=== PATIENT | female | born 2000 | race Caucasian/White ===

== ENCOUNTER 2024-04-18 01:22 | Day surgery (SDC) | payer OTHER, SELFPAY ==
[2024-04-11 12:14] VITALS: BMI 33.5
--- NOTE | 2024-04-11 12:20 | PC.NURSE ---
Report to the Outpatient Waiting Room, entrance under the green pavilion located off [facility], at time _0615_ on date _[id number]_. Planned Procedure Time: _0815_.? Time changes happen often and if your time is changed the preop area will call you the afternoon before. - You and your visitor will be asked to self-screen and do not enter if you have any COVID symptoms. Please call surgeon if you need to reschedule. - A mask is optional within the hospital at this time. - No food or drink from midnight until time of surgery and no smoking Take only the following medications with a SIP of water on the morning of surgery: ___Buspirone and Aurovela DO NOT STOP ANY OF YOUR OTHER PRESCRIPTION MEDICATIONS PRIOR TO SURGERY EXCEPT THE FOLLOWING Medications to discontinue per physician ___None Please no make-up, nail thai, hairspray, perfume, deodorant, or body powder the day of surgery.? No jewelry (including any body piercings) or valuables the day of surgery, leave them at home.? Please take a shower or bath the night before, or the morning of, surgery with an antibacterial soap.? Wear comfortable, loose fitting clothing.? - Jewelry must be removed prior to entering the operating room.? Rings and piercings that are not removed may be cut off. - The hospital will not accept responsibility for valuables.? - Please leave all valuables, including medications, at home the day of surgery. If you are going home after surgery, a licensed commercial driver's license driver must drive you home.? - NO public transportation without another adult if you receive anesthesia. - We recommend that an adult stay with you for 24 hours following discharge. - We also recommend that you do not drive, make important decision, drink alcoholic beverages, or take any drugs that were not prescribed by your health care provider for at least 24 hours after your discharge time. Follow any additional instructions given to you from your surgeon. Telephone instructions given to _Acosta__and asked if any additional questions and then verbalized understanding. Patient advised to call surgeon office or pre surgery nurse liaison [phone] if any additional questions.
[2024-04-18] VITALS (12 sets, daily range): BP systolic 122–158; BP diastolic 70–100; PULSE 58–95; RESP 12–16; TEMP 36.6–36.9; O2SAT 95–100; BMI 33.8
--- NOTE | 2024-04-18 06:56 | P.HPUP_ITS ---
History and Physical Update Update Date/Time: 04/18/24 06:56 Patient seen and examined in pre-operative holding area. No interval change in medical history or symptoms. Patient remembers previous discussion of benefits and alternatives to procedure. Continues to desire to proceed with bilateral breast reduction. I reviewed the risks including but not limited to bleeding ,infection, asymmetry, undesireable cosmetic appearance, partial/total skin/nipple loss, no change or worsening of symptoms, change in sensation. I discussed the possible use of assistants and their level of participation in the case. Patient stated understanding and signed the consent form wishing to pr oceed
--- NOTE | 2024-04-18 06:56 | W.PM.PROC2 ---
Procedure Note - Detailed Date of Procedure 04/18/24 Pre-op Diagnosis hypertrophy of breasts Post-op Diagnosis Same Procedure Performed b/l breast reduction Surgeon Bola Bae MD [employer] chelsey doyle pa-c Anesthesia General Description of Procedure Patient was seen in the preoperative holding area where the consent form was signed and breasts were marked for an inferior pedicle Phillips pattern reduction. Patient was taken back to the operating room and placed on the table in the supine position. Time-out was performed with Anesthesia, surgeon, and staff agreeing on patient's name, site, and surgery to be performed. SCDs were placed on the lower extremities and inflated. Antibiotics were given IV. After general anesthesia was administered the breasts were prepped and draped usual sterile fashion. I turned my attention to the right breast where I used a saline moistened lap pad and Radha clamp to create a breast tourniquet. I used a 38 mm nipple Sizer to circumscribe the nipple-areolar complex. I then used a 10 blade to make this incision around the nipple and proceeded with de epithelializing a 7 cm wide inferior pedicle. I made my other skin incisions with a 15 blade. Bovie cautery was then used to elevate superior skin flaps and Ishmael's plane down to the chest wall exposing the breast tissue. I proceeded with resection of 350 g of breast tissue from the right breast. Further resection of left the patient hypoplastic. I irrigated with normal saline hemostasis with Bovie cautery. 2-0 Vicryl suture was used to plicate the pedicle. I secured the T-junction with 2-0 Prolene. 3-0 Vicryl was used for dermis. The nipple was brought out 5 cm above the inframammary fold at the most prominent portion of the breast at the breast midline and secured with 3-0 Vicryl suture. 4-0 Monocryl was used for subcuticular closure. Injected 20 cc of 1% lidocaine with epinephrine half and 0.5% Marcaine plain along the inframammary fold and anterior axillary line. I took my attention to the left breast where similar procedure was performed using the breast tourniquet and 30 mm nipple Sizer. I de-epithelialized a 7 cm wide inferior pedicle. I made of the incisions and elevated skin flaps and Ishmael's plane to expose the breast tissue down to the chest wall. I proceeded with resection of 362 g of tissue from the left breast. I irrigated with normal saline and hemostasis was obtained with Bovie cautery. I plicated the pedicle with 2-0 Vicryl suture. 2-0 Prolene was used to secure the T-junction. There was reasonable size shape and symmetry to the right breast. The nipple was brought out 5 cm above the inframammary fold the most prominent portion of breast at the breast midline and secured with 3-0 Vicryl suture. 3-0 Vicryl was used for dermis and 4-0 Monocryl was used for subcuticular closure. 20 cc of 1% lidocaine with epi and 0.5% Marcaine plain were injected along the inframammary fold and anterior axillary line of the left breast. Again there was good size shape and symmetry to the breasts. The skin flaps and nipples appeared viable with good cap refill. A dressing of Mastisol, Steri-Strips, 4x4s, ABDs and a breast binder was then applied. The patient was awake from anesthesia and transferred to the recovery room stable condition. Complications: None Estimated blood loss: 50 cc Disposition: Patient tolerated the procedure well and will be going home later today Chelsey Doyle PA-C was essential for positioning, retraction, resection, closure and dressing placement [facility] [place] Billing Surgery - Charge Forward: Surgery Billing ([id number] same for chelsey dwyer )
[2024-04-18] MEDS: SCOPOLAMINE 1 MG PATCH 1 PATCH TRANSDERM (08:00)
[2024-04-18] MEDS: LACTATED RINGERS 1,000 ML 30 ML IV CONT (08:00)
--- NOTE | 2024-04-18 08:35 | WPDANESEPPF ---
Anes - Initial Pre Proc Eval Procedure: Operation Date: 04/18/24 09:15 Proposed Procedures p Bilateral Breast Reduction - Bola Bae MD Date/Time: 04/18/24 08:35 Surgeon: Bola Bae MD Pre Op Diagnosis: hypertrophy of breasts Patient Data Age: 24 Gender: F Height: 1.63 m Weight: 89.5 kg Last Vital Signs Temp 36.9 C 04/18/24 08:00 Pulse 58 L 04/18/24 08:00 Resp 14 04/18/24 08:00 BP 122/85 04/18/24 08:00 Pulse Ox 100 04/18/24 08:00 Allergies Allergy/AdvReac Type Severity Reaction Status Date / Time fluoxetine [From Prozac] Allergy Rash Verified 04/11/24 12:12 Sulfa (Sulfonamide Allergy Rash Verified 04/11/24 12:12 Antibiotics) Home Medications Medication Instructions Recorded Confirmed Type buspirone 7.5 mg tablet 7.5 mg PO BID 01/10/24 04/11/24 History norethindrone 1 mg-ethinyl 1 tablet PO DAILY 04/11/24 04/11/24 History estradiol 20 mcg (21)-iron 75 mg (7) tablet (Aurovela Fe 1-20 (28)) cephalexin 500 mg capsule 500 mg PO Q8H #21 caps 04/18/24 Rx hydrocodone 5 mg-acetaminophen 325 1 tablet PO Q6H PRN pain #16 tabs 04/18/24 Rx mg tablet Patient hx anesthesia problems: none Family hx anesthesia problems: none Results Review: All pre-operative results and documents have been reviewed as part of the pre-operative evaluation. [facility] Past Medical History Medical History (Updated 04/18/24 @ 08:35 by Geo Hanley MD) Anxiety Obesity Surgical History Surgical History Hx of tonsillectomy Family History Family History Father Depression Mother Hypertension Depression Sibling Depression Grandparent Cancer Hypertension Depression Diabetes mellitus Grandparent Alcohol abuse Cancer Depression Social History Social History Smoking status: Never smoker Alcohol intake: current Drinks per week: 2 Substance use: never Substance use type: marijuana Other substance usage details: Occasionally but not very often Do You Feel Safe in your Home?: Yes Lack of Transportation: No Lack of Food: Never True Current Housing: I Have Housing Concerned About Future Housing: No Difficulty Paying Gas/Electric Bills: No Difficulty Paying for Meds: No Currently Unemployed: No Education: Don't Know Difficulty w/ Childcare or Family Care: No Living arrangements: with family Occupation/Education: occupation Gender identity (if verbalized by the patient): Female Spiritual care concerns: No Anes - Eval Final PreProcedure Day of Procedure 04/18/24 08:35 Patient weight: obese Heart: regular rate and rhythm Lungs: clear to auscultation Airway: Mallampati scale class II Neurological: alert and oriented Last oral intake: >/= 8 hours ASA classification: II Emergent: no Anesthetic plan: proceed Anesthesia type and monitoring: general LMA and standard monitoring Results Review: All pre-operative results and documents have been reviewed as part of the pre-operative evaluation. Informed Consent: The patient's anesthetic plan and its attendant risks and benefits were discussed with the patient/family/POA. Questions were solicited and answers provided to the satisfaction of the patient/family/POA.
[2024-04-18 08:47] LABS: BEDSIDEPREGUCG Negative (Negative)
[2024-04-18] MEDS: ceFAZolin 2 GM/D5W 50 ML 2 GM/50 ML BAG IVPB (08:53)
[2024-04-18] MEDS: LIDO 1%/EPINEPHRINE 1:100,000 50 ML VIAL 30 ML INFILTRATE (09:20)
--- NOTE | 2024-04-18 10:01 | SUR.OPER ---
BREAST SPECIMENS BEING SENT DOWN IN [facility] WITH MD'S ORDERS
[2024-04-18] MEDS: fentaNYL CITRATE INJ (*CRX) 100 MCG/2 ML VIAL 25 MCG IV PUSH ×7 (10:51→12:15)
[2024-04-18] MEDS: MIDAZOLAM HCL (*CRX) 2 MG/2 ML VIAL 1 MG IV PUSH (10:55)
[2024-04-18] MEDS: ONDANSETRON INJ 4 MG/2 ML VIAL IV PUSH (12:34)
[2024-04-18] MEDS: oxyCODONE HCL (*CRX) 5 MG TAB IR PO (13:00)
--- NOTE | 2024-04-18 13:51 | SUR.PHASEII ---
MD Bae contacted - pt requests katerin script to go home with for nausea associated with pain script and antibiotics. states he will send tomorrow when back in office. Pt education provided.
== END 2024-04-18 14:00 | disposition home or self-care (01) ==
PROVIDERS: Visit Provider Plastic Surgery
PROC: 0HBV0ZZ Excision of Bilateral Breast, Open Approach (ICD-10-PCS; CPT 19318; principal; 2024-04-18 09:15)
DX: N62 Hypertrophy of breast (principal); F41.9 Anxiety disorder, unspecified; E66.9 Obesity, unspecified; Z68.33 Body mass index [BMI] 33.0-33.9, adult; F12.90 Cannabis use, unspecified, uncomplicated
CPT/HCPCS: 19318; 88305; A9270; J0690; J1100; J1171; J2004; J2250; J2405; J2704; J3010; J7120